=== PATIENT | male | born 1990 | race African-American/Black ===

== ENCOUNTER 2021-03-17 15:33 | Emergency (ER) | payer MEDICAID ==
[~2021-03-17] VITALS: Wt 108.9 kg
[2021-03-17] MEDS ORDERED: PROVENTIL HFA6.7 GM INH (18:23)
== END 2021-03-17 18:26 | disposition home or self-care (01) ==
LOC: ED 15:33
DX: J06.9 Acute upper respiratory infection, unspecified (principal); Z20.822 Contact with and (suspected) exposure to COVID-19; F17.200 Nicotine dependence, unspecified, uncomplicated; Z88.0 Allergy status to penicillin